=== PATIENT | male | born 1965 | race Caucasian/White ===

== ENCOUNTER → 2016-11-03 | Outpatient (CLI) | payer OTHER | LOC: FIMAGING 08:30 | PROVIDERS: ATTEND Podiatrist Foot & Ankle Surgery | DX: S86.812A Strain of other muscle(s) and tendon(s) at lower leg level, left leg, initial encounter (principal); Y93.23 Activity, snow (alpine) (downhill) skiing, snowboarding, sledding, tobogganing and snow tubing ==

== ENCOUNTER → 2017-01-27 | Outpatient (CLI) | payer OTHER | LOC: BMCIMAGING 14:08 | PROVIDERS: ATTEND Emergency Medicine | DX: M25.572 Pain in left ankle and joints of left foot (principal); Y93.31 Activity, mountain climbing, rock climbing and wall climbing; W19.XXXA Unspecified fall, initial encounter ==